=== PATIENT | female | born 1960 | race Caucasian/White ===

== ENCOUNTER → 2021-10-21 | Outpatient (CLI) | payer OTHER ==
[~2021-10-21] MED LIST: ASPIRIN 325MG325 MG PO; BACTRIM DS TAB1 EACH PO; CLEOCIN HCL300 MG PO; DICYCLOMINE HCL10 MG PO; IBUPROFEN800 MG PO; NEURONTIN800 MG PO; PERCOCET 10-321 EACH PO; VITAMIN C 500500 MG PO; VITAMIN D10000 UNIT PO
== END ==
LOC: RT 10:58
DX: R01.1 Cardiac murmur, unspecified (principal)
CPT/HCPCS: 93005

== ENCOUNTER → 2022-03-15 | Outpatient (CLI) | payer OTHER | LOC: HEART 5 08:06 | DX: R01.1 Cardiac murmur, unspecified (principal); I51.89 Other ill-defined heart diseases | CPT/HCPCS: 93306 ==

== ENCOUNTER → 2022-04-27 | Emergency (ER) | payer OTHER ==
[2022-04-27 14:47] LABS: RED BLOOD COUNT 4.94 M/UL (4.00-5.10); WHITE BLOOD COUNT 10.2 K/UL (4.5-11.0)
[2022-04-27 15:19] LABS: BUN/CREATININE RATIO 40 (0-10)
== END | disposition left against medical advice (07) ==
LOC: ER1 13:11
DX: R19.04 Left lower quadrant abdominal swelling, mass and lump (principal); R10.32 Left lower quadrant pain; Z88.5 Allergy status to narcotic agent; Z88.0 Allergy status to penicillin
CPT/HCPCS: 80053; 81001; 83690; 85025; 99281

== ENCOUNTER → 2022-06-09 | Outpatient (CLI) | payer OTHER | LOC: KOH-I 13:31 | DX: R10.32 Left lower quadrant pain (principal) | CPT/HCPCS: 76856 ==